=== PATIENT | female | born 1940 | race Caucasian/White ===

== ENCOUNTER → 2019-01-25 | Outpatient (CLI) | payer OTHER, BC ==
[~2019-01-25] MED LIST: AMARYL4 MG; ASPIR 8181 MG PO; AVAPRO300 MG PO; FLONASE 0.05%50 MCG NASAL; GABAPENTIN100 MG PO; HYDROCHLOROTHIA25 M2; HYDROCHLOROTHIA25 M2 PO; IRBESARTAN300 MG; JANUMET 50-1,01 EACH; LANTUSSOLASTAR; NITROGLYCERIN0.4 MG SUBLING; NORCO 5-325 TA1 EACH PO; OMEPRAZOLE 20 M20 M1 PO; PLAVIX 75 MG TA75 M1; SIMVASTATIN40 MG PO; TYLENOL325 MG PO
[2019-01-25 10:55] LABS: CREATININE 0.9 mg/dL (0.6-1.0)
== END ==
LOC: CAT 10:07
PROVIDERS: Pediatrics
DX: R59.9 Enlarged lymph nodes, unspecified (principal); J84.89 Other specified interstitial pulmonary diseases

== ENCOUNTER → 2020-01-17 | Outpatient (CLI) | payer OTHER, BC | LOC: SJCVCIMAG 11:21 | PROVIDERS: ATTEND Internal Medicine Cardiovascular Disease | DX: I45.10 Unspecified right bundle-branch block (principal); M79.605 Pain in left leg; M79.89 Other specified soft tissue disorders; I25.10 Atherosclerotic heart disease of native coronary artery without angina pectoris; E78.00 Pure hypercholesterolemia, unspecified; I10 Essential (primary) hypertension; E11.9 Type 2 diabetes mellitus without complications; Z90.49 Acquired absence of other specified parts of digestive tract; Z79.899 Other long term (current) drug therapy; Z87.891 Personal history of nicotine dependence ==

== ENCOUNTER → 2020-01-28 | Outpatient (CLI) | payer OTHER, BC | LOC: HYPER 12:26 | PROVIDERS: ATTEND Emergency Medicine | DX: E10.628 Type 1 diabetes mellitus with other skin complications (principal); L03.116 Cellulitis of left lower limb; E10.40 Type 1 diabetes mellitus with diabetic neuropathy, unspecified; I25.10 Atherosclerotic heart disease of native coronary artery without angina pectoris; D86.89 Sarcoidosis of other sites; G45.9 Transient cerebral ischemic attack, unspecified; R60.0 Localized edema; I10 Essential (primary) hypertension; E78.00 Pure hypercholesterolemia, unspecified; M19.90 Unspecified osteoarthritis, unspecified site; Z86.73 Personal history of transient ischemic attack (TIA), and cerebral infarction without residual deficits; Z87.891 Personal history of nicotine dependence; Z79.01 Long term (current) use of anticoagulants; Z81.2 Family history of tobacco abuse and dependence; Z90.49 Acquired absence of other specified parts of digestive tract; Z90.89 Acquired absence of other organs ==

== ENCOUNTER → 2020-02-01 | Outpatient (CLI) | payer OTHER, BC | LOC: SJCVCIMAG 13:30 | PROVIDERS: ATTEND Emergency Medicine | DX: I70.202 Unspecified atherosclerosis of native arteries of extremities, left leg (principal); M79.604 Pain in right leg ==

== ENCOUNTER → 2020-02-07 | Outpatient (CLI) | payer OTHER, BC | LOC: HYPER 13:32 | PROVIDERS: ATTEND Emergency Medicine | DX: L03.115 Cellulitis of right lower limb (principal); R60.0 Localized edema; E10.40 Type 1 diabetes mellitus with diabetic neuropathy, unspecified; E78.00 Pure hypercholesterolemia, unspecified; D86.89 Sarcoidosis of other sites; G45.9 Transient cerebral ischemic attack, unspecified; I25.10 Atherosclerotic heart disease of native coronary artery without angina pectoris; I10 Essential (primary) hypertension; M19.90 Unspecified osteoarthritis, unspecified site; Z81.2 Family history of tobacco abuse and dependence; Z79.4 Long term (current) use of insulin; Z79.84 Long term (current) use of oral hypoglycemic drugs; Z79.01 Long term (current) use of anticoagulants; Z87.891 Personal history of nicotine dependence; Z86.73 Personal history of transient ischemic attack (TIA), and cerebral infarction without residual deficits ==

== ENCOUNTER → 2020-02-12 | Outpatient (CLI) | payer OTHER, BC | LOC: SJCVC 13:43 | PROVIDERS: ATTEND Nuclear Medicine Nuclear Cardiology | DX: I73.9 Peripheral vascular disease, unspecified (principal); I25.118 Atherosclerotic heart disease of native coronary artery with other forms of angina pectoris; I10 Essential (primary) hypertension; E78.5 Hyperlipidemia, unspecified; E10.9 Type 1 diabetes mellitus without complications; Z90.49 Acquired absence of other specified parts of digestive tract; Z79.899 Other long term (current) drug therapy; Z87.891 Personal history of nicotine dependence ==

== ENCOUNTER → 2020-02-27 | Outpatient (CLI) | payer OTHER, BC ==
[~2020-02-27] VITALS: Ht 157.5 cm; Wt 71.2 kg
[~2020-02-27] MED LIST changes: -AMARYL4 MG; +AMARYL4 MG PO; +BASAGLAR K100 UNIT/1 SUBQ; +CALCIUM CIT 201 EACH PO; +COQ-10100 MG PO; +FAMOTIDINE 10 M10 MG PO; +KRILL OIL 1,001 EAC1 PO; +LOSARTAN POTAS100 MG PO; +NEURONTIN100 MG PO; +SUPER THERAVIT1 EACH PO; +VITAMIN B-121000 MC2 SUBLING; +VITAMIN D310 MC1 PO
[2020-02-27 08:21] LABS: HEMATOCRIT 40.3 % (37.0-47.0); HEMOGLOBIN 13.9 gm/dL (12.0-15.0); MCHC 34.4 g/dL (28.0-37.0); MCV 93.1 fL (80.0-100.0); RBC 4.33 mil/uL (4.20-5.00); WBC 9.6 thou/uL (4.0-11.0)
[2020-02-27 08:24] VITALS: BP 171/86
[2020-02-27 08:28] LABS: CALCIUM 10.5 mg/dL (8.5-10.1); CREATININE 0.7 mg/dL (0.6-1.0); POTASSIUM 3.9 mmol/L (3.5-5.1)
== END | disposition home or self-care (01) ==
LOC: CATH 07:39
PROVIDERS: ATTEND Nuclear Medicine Nuclear Cardiology
DX: I70.248 Atherosclerosis of native arteries of left leg with ulceration of other part of lower leg (principal); I70.1 Atherosclerosis of renal artery; L97.929 Non-pressure chronic ulcer of unspecified part of left lower leg with unspecified severity; I10 Essential (primary) hypertension; I25.10 Atherosclerotic heart disease of native coronary artery without angina pectoris; E11.9 Type 2 diabetes mellitus without complications; E78.5 Hyperlipidemia, unspecified; K21.9 Gastro-esophageal reflux disease without esophagitis; Z98.890 Other specified postprocedural states; Z79.899 Other long term (current) drug therapy; Z86.73 Personal history of transient ischemic attack (TIA), and cerebral infarction without residual deficits; Z79.4 Long term (current) use of insulin; Z87.891 Personal history of nicotine dependence; Z88.8 Allergy status to other drugs, medicaments and biological substances

== ENCOUNTER → 2020-02-28 | Outpatient (CLI) | payer OTHER, BC | LOC: HYPER 08:49 | PROVIDERS: ATTEND Emergency Medicine | DX: E10.628 Type 1 diabetes mellitus with other skin complications (principal); L03.115 Cellulitis of right lower limb; E10.40 Type 1 diabetes mellitus with diabetic neuropathy, unspecified; I25.10 Atherosclerotic heart disease of native coronary artery without angina pectoris; D86.89 Sarcoidosis of other sites; I10 Essential (primary) hypertension; G45.9 Transient cerebral ischemic attack, unspecified; E78.00 Pure hypercholesterolemia, unspecified; M19.90 Unspecified osteoarthritis, unspecified site; Z86.73 Personal history of transient ischemic attack (TIA), and cerebral infarction without residual deficits; Z87.891 Personal history of nicotine dependence; Z81.2 Family history of tobacco abuse and dependence; Z79.01 Long term (current) use of anticoagulants ==

== ENCOUNTER → 2020-07-18 | Outpatient (CLI) | payer OTHER, BC | LOC: SJCVC 13:33 | PROVIDERS: ATTEND Internal Medicine Cardiovascular Disease | DX: R94.31 Abnormal electrocardiogram [ECG] [EKG] (principal); I45.10 Unspecified right bundle-branch block; I25.118 Atherosclerotic heart disease of native coronary artery with other forms of angina pectoris; I10 Essential (primary) hypertension; E78.5 Hyperlipidemia, unspecified; I73.9 Peripheral vascular disease, unspecified; Z79.899 Other long term (current) drug therapy; Z87.891 Personal history of nicotine dependence ==

== ENCOUNTER → 2020-08-27 | Outpatient (CLI) | payer OTHER, BC | LOC: SJCVCIMAG 10:00 | PROVIDERS: ATTEND Nuclear Medicine Nuclear Cardiology | DX: I65.23 Occlusion and stenosis of bilateral carotid arteries (principal); I73.9 Peripheral vascular disease, unspecified; M79.605 Pain in left leg; I25.118 Atherosclerotic heart disease of native coronary artery with other forms of angina pectoris; I10 Essential (primary) hypertension; I35.0 Nonrheumatic aortic (valve) stenosis; E10.9 Type 1 diabetes mellitus without complications; E78.2 Mixed hyperlipidemia; S81.802A Unspecified open wound, left lower leg, initial encounter; E78.00 Pure hypercholesterolemia, unspecified; Z95.828 Presence of other vascular implants and grafts; Z79.4 Long term (current) use of insulin; Z79.899 Other long term (current) drug therapy; Z87.891 Personal history of nicotine dependence; X58.XXXA Exposure to other specified factors, initial encounter; Y93.89 Activity, other specified; Y92.89 Other specified places as the place of occurrence of the external cause; Y99.8 Other external cause status ==

== ENCOUNTER 2020-11-26 00:29 | Inpatient (IN) | payer OTHER, BC ==
[~2020-11-26] VITALS: Ht 157.5 cm; Wt 68.0 kg
[2020-11-26] VITALS (27 sets, daily range): BP systolic 109–181; BP diastolic 32–92
--- NOTE | ~2020-11-26 | P ---
[facility] [place] [address] PROCEDURE REPORT Name: MANDY ROMAN Room #: 212-P [facility] IN M.R.#: [id number] Admission: 11/26/20 Attend Phys: Pastor Hill MD Discharge: 11/28/20 Date of : 38 Report #: [id number] THIS REPORT FOR: cc: Elodia Myers MD, Melanie MD Couchonnal,Yovani Dennison MD ~ DOC #: [id number] Yovani Travis MD DATE OF SERVICE: 11/26/2020 PROCEDURE PERFORMED: Dual-chamber pacemaker implantation. PREOPERATIVE DIAGNOSIS: Complete heart block. POSTOPERATIVE DIAGNOSIS: Complete heart block. HISTORY: An 80-year-old presenting with symptomatic bradycardia secondary to heart block, here for pacemaker implantation. ANESTHESIA: The patient underwent MAC anesthesia with no anesthesia-related complications. DESCRIPTION OF PROCEDURE: The patient underwent informed consent. She was prepped and draped in a standard fashion receiving IV antibiotics and underwent a venogram showing pacing of left axillary vein. Next, I injected lidocaine at the incision site. Incision was made. Pocket created over prepectoral fascia. Access was obtained twice to left axillary vein. Sheath positioned using the modified Seldinger technique. Leads were positioned in the right ventricular apex, right atrial appendage, both with adequate pacing and sensing thresholds. Leads were sutured to prepectoral fascia. A device was connected, tested and found to be working well. Pocket irrigated with vancomycin. Pocket closed in two layers and surgical glue was placed to outer skin layer. The patient awoke neurologically and hemodynamically intact. No complications. No significant bleeding. The implanted pacemaker and leads were Medtronic. The generator had a model number W3DR01, serial number [id number]. Atrial lead was a 5076, serial number [id number]. Ventricular lead was a 5076, serial number [id number]. Atrial lead demonstrated P waves of 1 millivolt, pacing impedance 456 ohms, pacing threshold 0.75 volts at 0.4 milliseconds, RV lead demonstrated R waves of 7 millivolts, pacing impedance of 874 ohms, pacing threshold 0.5 volts at 0.4 milliseconds. The device was programmed to DDD 60-130 mode. CONCLUSION: Successful pacemaker implantation. Yovani Travis MD [facility] [address] [place] [address] PROCEDURE REPORT Name: MANDY ROMAN Room #: 212-P [facility].#: [id number] Admission: 11/26/20 Attend Phys: Pastor Hill MD Discharge: 11/28/20 Date of : 38 Report #: [id number] EBONIE/PRAFUL/KYMBERLY By: 1141 [id number] Yovani Travis MD /nt
--- NOTE | 2020-11-26 03:36 | NUR ---
PT TRANSFERRED DIRECT ADMISSION FROM [facility] TO ROOM 204 @ 0250. PT ADMISSION STARTED AND COMPLETED WITH PATIENT GIVEN A WELCOME PACKET WITH INFORMATION DIGITS. PT HAS SIGNED CONSENTS. MALU MEDICAL ARTIST (Chastity) AT BEDSIDE ASSESSING PATIENT. ASSESSEMNT CHARTED. CONTINUE TO MONITOR AND PLAN OF CARE
[2020-11-26] MEDS ORDERED: JANUMET 50-1,01 EACH PO (04:04)
[2020-11-26] MEDS ORDERED: OYSTER SHELL 51 EACH PO ×2 (04:09→05:14)
[2020-11-26] MEDS ORDERED: OCUVITE TABLET1 EAC1 PO (04:10)
[2020-11-26 04:45] LABS: HEMATOCRIT 41.1 % (37.0-47.0); HEMOGLOBIN 13.9 gm/dL (12.0-15.0); MCHC 33.9 g/dL (28.0-37.0); MCV 91.7 fL (80.0-100.0); RBC 4.49 mil/uL (4.20-5.00); RDW 13.3 % (10.5-14.5); WBC 11.6 thou/uL (4.0-11.0)
[2020-11-26 05:30] LABS: CALCIUM 10.3 mg/dL (8.5-10.1); CREATININE 0.9 mg/dL (0.6-1.0); POTASSIUM 4.5 mmol/L (3.5-5.1)
[2020-11-26 05:36] LABS: TOTAL BILIRUBIN 0.5 mg/dL (0.2-1.0)
[2020-11-26 06:18] LABS: CHOLESTEROL 152 mg/dL (<200); HDL CHOLESTEROL 70 mg/dL (>40); LDL CHOLESTEROL 61 mg/dL (<100); TC:HDL 2.2 Ratio (Not establshd); TRIGLYCERIDE 105 mg/dL (<150); VLDL 21 mg/dL (<40)
[2020-11-26 06:22] LABS: SERUM ASSESSMENT Clear
--- NOTE | 2020-11-26 09:23 | EKG ---
[address] [address] ELECTROCARDIOGRAM REPORT Name: MANDY ROMAN Room #: 204- ADM IN M.R.#: [id number] Admission: 11/26/20 Attend Phys: Pastor Hill MD Discharge: Date of : 36 Report #: [id number] [facility] Test Date: 2020-11-26 Test Time: 07:21:43 Pat Name: MANDY ROMAN Department: Room: 204 Gender: F Antique Repairer: SANDOVAL : 1940 Requested By: Rosa M Cerda Order Number: [id number] MD: Miguel Baltazar Measurements Intervals [place] Rate: 67 P: 64 ME: 193 QRS: 137 QRSD: 151 T: 23 QT: 442 QTc: 467 Interpretive Statements Sinus rhythm Right bundle branch block Compared to ECG 07/02/2016 09:49:29 Sinus arrhythmia no longer present Left posterior fascicular block no longer present Electronically Signed On 11-26-2020 9:23:29 CDT by Miguel Baltazar [email or web address] <ELECTRONICALLY SIGNED> By: Miguel Baltazar MD, [facility] 11/26/20922 0 0 Miguel Baltazar MD, [facility] /EPI
--- NOTE | 2020-11-26 10:38 | 2DMMODE ---
[facility] [place] [address] 2 D/M-MODE ECHOCARDIOGRAM Name: MANDY ROMAN Room #: 204-P ADM IN M.R.#: [id number] Admission: 11/26/20 Attend Phys: Pastor Hill MD Discharge: Date of : 38 Report #: [id number] THIS REPORT FOR: cc: Elodia Myres MD, Melanie MD Park, Jin S. MD ~ APPROVED REPORT Study performed: 11/26/2020 07:33:18 EXAM: Comprehensive 2D, Doppler, and color-flow Echocardiogram Patient Location: Bedside Room #: 204 Status: routine BSA: 1.75 HR: 62 bpm BP: 162/76 mmHg Rhythm: NSR Other Information Study Quality: Adequate Indications Murmur Elevated Troponin Hx: CAD, stent, HTN, HLP, DM. 2D Dimensions RVDd: 28.07 mm IVSd: 10.01 (7-11mm) LVOT Diam: 20.00 (18-24mm) LVDd: 53.06 mm PWd: 10.40 (7-11mm) Ascending Ao: 32.35 (22-36mm) LVDs: 23.92 (25-40mm) Aortic Root: 27.75 mm Volumes Left Atrial Volume (Systole) Single Plane 4CH: 71.07 mL Single Plane 2CH: 48.16 mL LA ESV Index: 35.00 mL/m2 Aortic Valve AoV Peak Alejandro.: 3.08 m/s AO Peak Gr.: 33.37 mmHg AO Mean Gr.: 23.93 mmHg [facility] [address] [place] [address] 2 D/M-MODE ECHOCARDIOGRAM Name: MANDY ROMAN Room #: 204-P [facility] IN .R.#: [id number] Admission: 11/26/20 Attend Phys: Ada Tracy Discharge: Date of : 38 Report #: [id number] AO V2 Mean: 2.33 m/s AO V2 VTI: 80.21 cm Mitral Valve E/A Ratio: 0.8 MV Decel. Time: 217.62 ms MV E Max Alejandro.: 0.96 m/s MV A Alejandro.: 1.26 m/s MV PHT: 63.11 ms IVRT: 86.51 ms Pulmonary Valve PV Peak Alejandro.: 1.24 m/s PV Peak Gr.: 6.18 mmHg Pulmonary Vein P Vein S: 0.54 m/s P Vein A: 0.39 m/s P Vein D: 0.40 m/s P Vein A Dur.: 143.0 msec P Vein S/D Ratio: 1.35 Tricuspid Valve RAP Estimate: 5.00 mmHg Left Ventricle The left ventricle is normal size. There is normal LV segmental wall motion. There is normal left ventricular wall thickness. The left ventricular systolic function is normal. LVEF is 60-65%. Mild diastolic dysfunction is present (impaired relaxation pattern). Right Ventricle The right ventricle is normal size. The right ventricular systolic function is normal. Atria Left atrium is dilated. The right atrium size is normal. Aortic Valve The aortic valve is normal in structure. Leaflets are moderately calcified. No aortic regurgitation is present. There is moderate valvular aortic stenosis. Maximum pressure gradient of 38 mmHg and mean pressure gradient of 24 mmHg. Mitral Valve The mitral valve is normal in structure. Mild mitral regurgitation. No evidence of mitral valve stenosis. [facility] [place] [address] 2 D/M-MODE ECHOCARDIOGRAM Name: MANDY ROMAN Room #: 204-P [facility] IN ..#: [id number] Admission: 11/26/20 Attend Phys: Ada Tracy Discharge: Date of : 38 Report #: [id number] Tricuspid Valve The tricuspid valve is normal in structure. Trace tricuspid regurgitation. Unable to assess PA pressure. Pulmonic Valve The pulmonary valve is normal in structure. There is no pulmonic valvular regurgitation. Great Vessels The aortic root is normal in size. The ascending aorta is normal in size. IVC is normal in size and collapses <50% with inspiration. Pericardium There is no pericardial effusion. <Conclusion> The left ventricle is normal size. There is normal left ventricular wall thickness. The left ventricular systolic function is normal. Mild diastolic dysfunction is present (impaired relaxation pattern). The right ventricle is normal size. Left atrium is dilated. There is moderate valvular aortic stenosis. Mild mitral regurgitation. <ELECTRONICALLY SIGNED> By: Rolando Romero MD 11/26/20 1037 1037 1037 Rolando Romero MD /INF
--- NOTE | 2020-11-26 13:26 | NUR ---
Met with patient who transferred to [facility] from [facility]. Patient resides at home with son-in-law and grandson. Patient walks from garage straight into her apt of the home. Her grandson/son in law live upstairs. 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 Their hours are different therefor someone home at all times. Patient reports she has a walker/wc but does not use. She reports independent with adls port captain. She cont to drive. Patient anticipates no needs at wi.
--- NOTE | 2020-11-26 15:16 | EKG ---
[address] [place] [address] ELECTROCARDIOGRAM REPORT Name: MANDY ROMAN Room #: 204- ADM IN M.R.#: [id number] Admission: 11/26/20 Attend Phys: Pastor Hill MD Discharge: Date of : 38 Report #: [id number] [facility] Test Date: 2020-11-26 Test Time: 14:39:48 Pat Name: MANDY ROMAN Department: Room: 204 Gender: F Flat Drier: SANDOVAL : 1940 Requested By: Annmarie Perez Order Number: [id number] MD: Brian Tiwari Measurements Intervals [place] Rate: 42 P: 0 [place]: 342 QRS: 119 QRSD: 146 T: -44 QT: 558 QTc: 467 Interpretive Statements Sinus rhythm with complete heart block RBBB and LPFB Abnormal T, consider ischemia Compared to ECG 11/26/2020 07:21:43 Heart block is now present Electronically Signed On 11-26-2020 15:16:34 CDT by Brian Tiwari [email or web address] <ELECTRONICALLY SIGNED> By: Brian Tiwari MD, [facility] 11/26/20 1516 1439 1439 Brian Tiwari MD, [facility] /EPI
--- NOTE | 2020-11-26 17:31 | NUR ---
ARRIVED TO ICU FROM CCU THIS AFTERNOON, ALERT AND ORIENTED AND DENIES PAIN. HYPERTENSIVE AND BRADYCARDIC, STARTED ON DOPAMINE GTT AND NOW PATIENT IS SR AND BP HAS SINCE DECREASED AND STABILIZED. NO CONCERNS EXPRESSED AT THIS TIME. ASSESSMENT DOCUMENTED.
--- NOTE | 2020-11-26 18:48 | NUR ---
ASSUMED PATIENT CARE AT 0700. EKG AND ECHO PREFORMED. AROUNT 1400 PATIENT CONVERTED TO MOBITZ II HEART BLOCK. PATIENT LETHARGIC AND COMPLAINING OF WEAKNESS. CARDIOLOGY CONSUMER EXPERIENCE CONSULTANT NOTIFIED AND ORDER FOR EKG OBTAINED. AT 1500 ORDERED RECIEVED TO TRANSFER TO ICU. REPORT CALLED TO CONVEYOR OPERATOR. DR. ROBLERO AT BEDSIDE. KUSUM WALTERS UPDATED VIA PHONE CALL AT 1863. HE WAS UPDATED ON PATIENT CONDITION WELL TRANSFER TO ICU. SON ALSO UPDATED ON PLAN FOR CATH AND PACEMAKER TOMORROW.
[2020-11-26 23:06] LABS: GLYCOHEMOGLOBIN (HGB A1C) 8.4 % (4.8-5.6)
[2020-11-27] VITALS (21 sets, daily range): BP systolic 103–173; BP diastolic 32–60
[2020-11-27 05:15] LABS: HEMATOCRIT 37.4 % (37.0-47.0); HEMOGLOBIN 12.8 gm/dL (12.0-15.0); MCH 31.6 pg (26.0-34.0); MCHC 34.1 g/dL (28.0-37.0); MCV 92.5 fL (80.0-100.0); RBC 4.04 mil/uL (4.20-5.00); RDW 13.3 % (10.5-14.5); WBC 13.4 thou/uL (4.0-11.0)
[2020-11-27 05:54] LABS: ANION GAP 10 mmol/L (7-16); BUN 12 mg/dL (7-18); CALCIUM 9.5 mg/dL (8.5-10.1); CHLORIDE 102 mmol/L (98-107); CO2 23 mmol/L (21-32); CREATININE 0.9 mg/dL (0.6-1.0); GLUCOSE 221 mg/dL (74-106); POTASSIUM 4.5 mmol/L (3.5-5.1); SODIUM 135 mmol/L (136-145); TROPONIN-I <0.06 ng/mL (<0.06)
--- NOTE | 2020-11-27 10:45 | HC ---
[facility] [place] [address] CONSULTATION Name: MANDY ROMAN Room #: 242-P ADM IN M.R.#: [id number] Admission: 11/26/20 Attend Phys: Pastor Hill MD Discharge: Date of : 38 Report #: [id number] THIS REPORT FOR: cc: Elodia Myers MD, Melanie MD Couchonnal,Yovani Dennison MD ~ ELECTROPHYSIOLOGY CONSULTATION REASON FOR CONSULTATION: Complete heart block. HISTORY OF PRESENT ILLNESS: The patient is an 79-year-old female who follows with Dr. Romero, history of coronary artery disease, status post bare metal stent to the circumflex 2014, hypertension, hyperlipidemia, diabetes, peripheral neuropathy, prior TIA, vertigo, arthritis, peripheral vascular disease, gastritis with prior GI bleed, who has been having increased lightheaded and presyncopal symptoms associated with fatigue and shortness of breath. She was transferred here to [facility] where on telemetry she was noted to have symptomatic complete heart block. She was transferred to the Intensive Care Unit, was started on a dopamine drip, which improved her conduction overnight. She is scheduled today for cardiac catheterization given an elevated troponin of 0.1. She denies any chest pain or chest tightness. She denies any shortness of breath. Currently, she denies fevers or chills. REVIEW OF SYSTEMS: A 12-point review of systems was performed and was negative other than what I mentioned above. PAST MEDICAL HISTORY: As above. SOCIAL HISTORY: No smoking. FAMILY HISTORY: Noncontributory. ALLERGIES: Reviewed include AMLODIPINE, ASPIRIN AND CHOCOLATE. MEDICATIONS: Have been reviewed. She is on no AV jarad blocking agents. PHYSICAL EXAMINATION: VITAL SIGNS: Reviewed. GENERAL: She is alert and oriented x 3, in no acute distress. HEENT: Oropharynx is clear. Mucous membranes are moist and sclerae are anicteric. NECK: Supple. No thyromegaly or carotid bruits. HEART: Regular rate and rhythm with no murmurs, rubs or gallops. LUNGS: Clear to auscultation bilaterally. ABDOMEN: Soft, nontender, nondistended. EXTREMITIES: No clubbing, cyanosis, edema. [facility] [address] [place] [address] CONSULTATION Name: MANDY ROMAN Room #: 242-P [facility] IN [facility].#: [id number] Admission: 11/26/20 Attend Phys: Pastor Hill MD Discharge: Date of : 38 Report #: [id number] NEUROLOGIC: Cranial nerves 2-12 are intact. PSYCHIATRIC: She is appropriate. DIAGNOSTIC DATA: She had an echocardiogram yesterday showing normal ejection fraction with moderate aortic stenosis. LABORATORY DATA: Reviewed. Creatinine 0.9. COVID negative. White count 13, hemoglobin 12, platelets 301. ASSESSMENT: 1. Symptomatic bradycardia. 2. Complete heart block. 3. Coronary artery disease. 4. Elevated troponin. PLAN: In summary, the patient is an 79-year-old presenting with symptomatic bradycardia secondary to complete heart block. She is on no AV jarad blocking agents. She meets criteria for dual chamber pacemaker implantation. We discussed the details of the procedure including the risks, which include but not limited to bleeding, infection, vascular damage, cardiac perforation, pneumothorax. She understands these risks and is willing to proceed. After diagnostic cardiac catheterization, we will proceed with pacemaker implantation. <ELECTRONICALLY SIGNED> By: Yovani Travis MD 11/27/20 1045 0747 0756 Yovani Travis MD /nt
--- NOTE | 2020-11-27 11:19 | CATHLAB ---
[facility] [place] [address] INVASIVE PROCEDURE REPORT Name: MADNY ROMAN Room #: 242-P ADM IN M.R.#: [id number] Admission: 11/26/20 Attend Phys: Pastor Hill MD Discharge: Date of : 38 Report #: [id number] THIS REPORT FOR: cc: Elodia Myers MD, Melanie MD Park, Jin S. MD ~ APPROVED REPORT Study performed: 11/27/2020 08:12:22 Patient Details Patient Status: In-Patient Room #: 242 The patient is a 79 year-old female Event Personnel Rolando Romero Multi Operation Forming Machine Setter, Skip Munoz RTR Scrub, Josh Stoddard RN RN, Ellie Cantu RTR Monitor Procedures Performed Art Access - R femoral artery* Left Heart Cath w/or w/o Coronaries 0761691 [facility] Hemostasis with Manual pressure 64000 Initial Mod Sed Same Phys/QHP Gr5y 751073 40175 Mod Sed Same Phys/QHP Ea 034348 Indication Dizziness and vertigo, Dyspnea, Chest pain, The patient presented with minimal troponin elevation. Risk Factors Hypercholesterolemia, Coronary Artery DiseaseHypertension Previous Procedures/Diagnoses Previous PCI Procedure Narrative The Right Groin^ was infiltrated with 1% Lidocaine subcutaneous anesthesia. A PINNACLE 4FR Sheath #[id number] sheath was inserted into the RFA^. Coronary angiography was performed using coronary diagnostic catheters. The right coronary system was accessed and visualized with a JR4 catheter. The left coronary system was accessed and visualized with a JL4 catheter. The left ventricle was accessed and visualized with a ANGLED PIGTAIL catheter. Hemostasis was obtained with manual pressure following sheath removal without any complications. The patient tolerated the procedure well and there [facility] [address] [place] [address] INVASIVE PROCEDURE REPORT Name: MANDY ROMAN Rissa Room #: 242-P [facility] IN [facility].#: [id number] Admission: 11/26/20 Attend Phys: Ada Tracy Discharge: Date of : 38 Report #: [id number] were no complications associated with the procedure. There was no hematoma. Intraoperative Conscious Sedation Sedation start time: 9:05 Case end Time: 9:33 Fentanyl 50 mcg Versed 1 mg Fluoro Time: 2.50 minutes Dose: DAP 4385.00 cGycm2 541 mGy Contrast Type and Amount: Omnipaque 80 ml Coronary Angiography The patient's coronary anatomy is right dominant. Diagnostic Cath Left Main The left main artery is a large-caliber vessel, appears angiographically normal. LAD The LAD is a moderate-sized caliber vessel, traverses the anterior wall and wraps around the apex. There is mild disease in the proximal segment, 20%. Diagonal 1 This vessel originates from the mid segment of the LAD, appears angiographically normal. Circumflex There is a patent stent in the proximal segment, with mild to moderate restenosis. OM1 This is a moderate-sized caliber vessel, patent with no flow-limiting lesions. OM2 This is a moderate-sized caliber vessel, patent with no flow-limiting lesions. Right Coronary The RCA is a dominant vessel with mild to moderate stenosis in the proximal segment, 30 to 40%. R PDA This is a moderate-sized caliber vessel, patent with no flow-limiting lesions. RPLV This is a moderate-sized caliber vessel, patent with no flow-limiting lesions. Ramus This is a moderate-sized caliber vessel, patent with no flow-limiting lesions. Left Ventriculography The left ventricle is normal in size with normal contractility. The left ventricular ejection fraction is estimated to be 55-60%. Hemodynamics The aortic pressure is 132/55 mmHg with a mean of 83 mmHg. The left ventricular pressure is 177/3 mmHg with a mean of mmHg. [facility] [address] [place] [address] INVASIVE PROCEDURE REPORT Name: MANDY ROMAN Room #: 242-P [facility] IN [facility].#: [id number] Admission: 11/26/20 Attend Phys: Ada Tracy Discharge: Date of : 38 Report #: [id number] ventricular end diastolic pressure is 16 mmHg. Conclusion 1. There is a patent stent in the left circumflex artery with mild to moderate restenosis. 2. There is mild to moderate disease in the LAD and RCA. 3. There is normal LV systolic function. 4. Recommend aggressive risk factor management. <ELECTRONICALLY SIGNED> By: Rolando Romero MD 11/27/20 1118 1118 1118 Rolando Romero MD /INF
--- NOTE | 2020-11-27 14:46 | NUR ---
PT TAKEN TO RETAIL RECEIVING CLERK TODAY AT 0700, UNABLE TO DO MORNING ASSESTMENT OR MED PASS. PT RETURNED TO ICU AT APPROX 1400 WITH AN AICD TO LEFT CHEST WITH SUTURES IN PLACE FOR SKIN CLOSURE. RIGHT GROIN SITE IS C/D/I, PT REPORTS NO PAIN. PT HAS BEEN UPDATED AND EDUCATED ON CONDITION, POC, AND SPECIFIC INSTRUCTIONS FOR GROIN AND CHEST SITE. PT PROGRESSING TOWARDS POC.
--- NOTE | 2020-11-27 17:35 | NUR ---
PT. ARRIVED AT FLOOR CLOSE TO 1500; PT. AOX4; NO C/O PAIN; VPACED-AVPACED; SBP ON THE 170s; SCHEDULED MEDICATION GIVEN BEFORE ARRIVING TO FLOOR; PRN MEDICATION GIVEN; RAVI SENIOR RADIATION THERAPIST NOTIFIED; ORDERS ON PLACED; INCISION OVER L. UPPER CHEST; IMMOBILIZER ON PLACED; PT. EDUCATED ABOUT BED REST; ST. UNDERSTANDING; EDUCATED ABOUT CALLING TO USE THE BED SIDE COMMODE; ST. UNDERSTANDING; ASSESSMENT CHARGED; FOLLOWING POC; WILL PASS ON REPORT;
[2020-11-28 00:05] VITALS: BP 129/40
[2020-11-28 05:05] LABS: HEMATOCRIT 34.5 % (37.0-47.0); HEMOGLOBIN 11.7 gm/dL (12.0-15.0); MCH 31.7 pg (26.0-34.0); MCV 93.2 fL (80.0-100.0); RBC 3.7 mil/uL (4.20-5.00); RDW 13.3 % (10.5-14.5); WBC 10.6 thou/uL (4.0-11.0)
--- NOTE | 2020-11-28 05:07 | NUR ---
ASSUMED PT CARE AT CHANGE OF SHIFT, AWAKE, ALERT AND ORIENTED, ASSESSMENTS CHARTED, MEDS GIVEN PER MAR, TYL GIVEN FOR PAIN WITH RELIEF, PACE MAKER INCISION SITE TO THE LEFT CHEST CDI, HAND IMMOBILIZER ON, UP TO THE COMMODEX1 ASSIST, VSS, AV PACED ON TELE, RIGHT GROIN SITE CDI, NO HEMATOMA, DENIES CONCERNS, WILL CONTINUE TO MONITOR AND FOLLOW POC
[2020-11-28 05:08] LABS: CALCIUM 9.6 mg/dL (8.5-10.1); CREATININE 0.9 mg/dL (0.6-1.0); POTASSIUM 4.1 mmol/L (3.5-5.1)
[2020-11-28 05:18] VITALS: BP 144/45
[2020-11-28 07:34] VITALS: BP 156/62
[2020-11-28 11:22] VITALS: BP 148/60
--- NOTE | 2020-11-28 11:43 | NUR ---
Pt dcing home today. HH recommended per the attending and discussed options with the pt. The pt does not feel she need nursing visits at home or therapy. She has lots of family support and her sister will be staying with her as well. They can provide support and supervision for adl's and homemaker activities. She has grandkids and sons that live there and are available as needed. Care team updated. No hh referrals anticipated at this time. Pt to f/u with her pcp at [facility] as well as cardiology.
[2020-11-28] MEDS ORDERED: PEPCID20 MG PO (12:12)
[2020-11-28] MEDS ORDERED: BENICAR40 MG PO (12:12)
[2020-11-28] MEDS ORDERED: CEPHALEXIN500 MG PO (12:12)
--- NOTE | 2020-11-28 12:26 | NUR ---
RECEIVED PT'S CARE AROUND 0945; PT. AOX4; GETTING READY TO GO TO XRAY; SR ON THE MONITOR; DURING AM ASSESSMENT NO C/O PAIN; REQUESTED TO USE THE RESTHROOM; NOTICED PT. HOLDING FROM FURNITURES WHILE AMBULATING WITH FIELD ENUMERATOR ASSISTANCE; ASKED IF USE CANE OR WALKER; PT. ST. WILL START USING A WALKER ONCE AT HOME DUE TO PACEMAKER PLACEMENT; REMAINED ABOUT PACEMAKER PRECAUTIONS AND FALLS; ST. UNDERSTANDING; PER SOCIAL WOKER PT. REFUSED HH; RAVI MARSH NOTIFIED ABOUT XRAY RESULTS IN THE SYSTEM; SUGGESTED TO NOTIFIED DR. ALAMO ABOUT RESULTS; DR. ALAMO NOTIFIED; ST. WILL RX ABX FOR 5 DAYS; WAITING ON D/C COMPLETION BY DR. ALAMO; ASSESSMENT CHARGED; FOLLOWING POC; WILL WORK ON D/C PAPER ONCE COMPLETE IT;
[2020-11-28 12:48] VITALS: BP 148/60
== END 2020-11-28 13:33 | disposition home or self-care (01) | DRG 243 ==
LOC: 2N 00:29 → ICU 02:53 → 2N 11-27 14:25
PROVIDERS: Internal Medicine Cardiovascular Disease; Nurse Practitioner; Nurse Practitioner Family; ADMIT Hospitalist; ATTEND Hospitalist
DX: I44.2 Atrioventricular block, complete (principal); E87.1 Hypo-osmolality and hyponatremia; T82.855A Stenosis of coronary artery stent, initial encounter; I25.10 Atherosclerotic heart disease of native coronary artery without angina pectoris; I10 Essential (primary) hypertension; E11.51 Type 2 diabetes mellitus with diabetic peripheral angiopathy without gangrene; I95.1 Orthostatic hypotension; I16.0 Hypertensive urgency; E11.42 Type 2 diabetes mellitus with diabetic polyneuropathy; E78.5 Hyperlipidemia, unspecified; Z20.822 Contact with and (suspected) exposure to COVID-19; Y83.8 Other surgical procedures as the cause of abnormal reaction of the patient, or of later complication, without mention of misadventure at the time of the procedure; Y92.89 Other specified places as the place of occurrence of the external cause; Z88.6 Allergy status to analgesic agent; Z88.8 Allergy status to other drugs, medicaments and biological substances; Z95.5 Presence of coronary angioplasty implant and graft; Z86.73 Personal history of transient ischemic attack (TIA), and cerebral infarction without residual deficits; Z94.89 Other transplanted organ and tissue status; Z95.820 Peripheral vascular angioplasty status with implants and grafts; Z82.49 Family history of ischemic heart disease and other diseases of the circulatory system; Z87.891 Personal history of nicotine dependence
CPT/HCPCS: 10078; 10081; 10204; 62110; 62900; 70005

== ENCOUNTER → 2020-12-03 | Outpatient (CLI) | payer OTHER, BC ==
[~2020-12-03] MED LIST changes: +BENICAR40 MG PO; +CEPHALEXIN500 MG PO; +JANUMET 50-1,01 EACH PO; +OCUVITE TABLET1 EAC1 PO; +OYSTER SHELL 51 EACH PO; +PEPCID20 MG PO
== END ==
LOC: SJCVC 13:29
PROVIDERS: ATTEND Internal Medicine Cardiovascular Disease
DX: I44.2 Atrioventricular block, complete (principal); I10 Essential (primary) hypertension; I25.10 Atherosclerotic heart disease of native coronary artery without angina pectoris; E78.5 Hyperlipidemia, unspecified; E11.51 Type 2 diabetes mellitus with diabetic peripheral angiopathy without gangrene; I73.9 Peripheral vascular disease, unspecified; Z95.0 Presence of cardiac pacemaker; Z90.49 Acquired absence of other specified parts of digestive tract; Z98.890 Other specified postprocedural states; Z88.8 Allergy status to other drugs, medicaments and biological substances; Z79.4 Long term (current) use of insulin; Z79.899 Other long term (current) drug therapy; Z87.891 Personal history of nicotine dependence; Z86.73 Personal history of transient ischemic attack (TIA), and cerebral infarction without residual deficits; Z82.49 Family history of ischemic heart disease and other diseases of the circulatory system

== ENCOUNTER → 2020-12-18 | Outpatient (CLI) | payer OTHER, BC | LOC: SJCVC 11:12 | PROVIDERS: ATTEND Internal Medicine Cardiovascular Disease | DX: R94.31 Abnormal electrocardiogram [ECG] [EKG] (principal); I45.10 Unspecified right bundle-branch block; I49.1 Atrial premature depolarization; I25.118 Atherosclerotic heart disease of native coronary artery with other forms of angina pectoris; I10 Essential (primary) hypertension; E78.00 Pure hypercholesterolemia, unspecified; R60.9 Edema, unspecified; I44.2 Atrioventricular block, complete; E11.9 Type 2 diabetes mellitus without complications; E78.5 Hyperlipidemia, unspecified; Z95.0 Presence of cardiac pacemaker; Z90.49 Acquired absence of other specified parts of digestive tract; Z98.890 Other specified postprocedural states; Z98.61 Coronary angioplasty status; Z88.8 Allergy status to other drugs, medicaments and biological substances; Z79.4 Long term (current) use of insulin; Z79.899 Other long term (current) drug therapy; Z86.73 Personal history of transient ischemic attack (TIA), and cerebral infarction without residual deficits; Z87.891 Personal history of nicotine dependence; Z82.49 Family history of ischemic heart disease and other diseases of the circulatory system ==

== ENCOUNTER → 2021-02-24 | Outpatient (CLI) | payer OTHER, BC | LOC: SJCVCIMAG 08:45 | PROVIDERS: ATTEND Internal Medicine Cardiovascular Disease | DX: R94.31 Abnormal electrocardiogram [ECG] [EKG] (principal); I49.9 Cardiac arrhythmia, unspecified; I45.10 Unspecified right bundle-branch block; I73.9 Peripheral vascular disease, unspecified; M79.604 Pain in right leg; M79.605 Pain in left leg; E78.00 Pure hypercholesterolemia, unspecified; I77.9 Disorder of arteries and arterioles, unspecified; I10 Essential (primary) hypertension; I35.0 Nonrheumatic aortic (valve) stenosis; E10.9 Type 1 diabetes mellitus without complications; I25.118 Atherosclerotic heart disease of native coronary artery with other forms of angina pectoris; I49.5 Sick sinus syndrome; Z95.0 Presence of cardiac pacemaker; Z90.49 Acquired absence of other specified parts of digestive tract; Z98.890 Other specified postprocedural states; Z95.820 Peripheral vascular angioplasty status with implants and grafts; Z88.8 Allergy status to other drugs, medicaments and biological substances; Z79.899 Other long term (current) drug therapy; Z86.73 Personal history of transient ischemic attack (TIA), and cerebral infarction without residual deficits; Z87.891 Personal history of nicotine dependence; Z82.49 Family history of ischemic heart disease and other diseases of the circulatory system ==

== ENCOUNTER → 2021-03-26 | Outpatient (CLI) | payer OTHER, BC | LOC: SJCVC 11:01 | PROVIDERS: ATTEND Internal Medicine Cardiovascular Disease | DX: R94.31 Abnormal electrocardiogram [ECG] [EKG] (principal); I45.10 Unspecified right bundle-branch block; I25.10 Atherosclerotic heart disease of native coronary artery without angina pectoris; I10 Essential (primary) hypertension; E78.00 Pure hypercholesterolemia, unspecified; R60.9 Edema, unspecified; E11.9 Type 2 diabetes mellitus without complications; M19.90 Unspecified osteoarthritis, unspecified site; Z95.0 Presence of cardiac pacemaker; Z95.5 Presence of coronary angioplasty implant and graft; Z98.890 Other specified postprocedural states; Z90.49 Acquired absence of other specified parts of digestive tract; Z88.8 Allergy status to other drugs, medicaments and biological substances; Z79.899 Other long term (current) drug therapy; Z86.73 Personal history of transient ischemic attack (TIA), and cerebral infarction without residual deficits; Z87.891 Personal history of nicotine dependence; Z82.49 Family history of ischemic heart disease and other diseases of the circulatory system ==

== ENCOUNTER → 2021-07-17 | Outpatient (CLI) | payer OTHER, BC | LOC: RAD 08:10 | PROVIDERS: ATTEND Pediatrics | DX: R91.8 Other nonspecific abnormal finding of lung field (principal); J84.89 Other specified interstitial pulmonary diseases; R06.02 Shortness of breath; M25.78 Osteophyte, vertebrae; M47.814 Spondylosis without myelopathy or radiculopathy, thoracic region ==

== ENCOUNTER → 2021-09-09 | Outpatient (CLI) | payer OTHER, BC | LOC: SJCVCIMAG 12:10 | PROVIDERS: ATTEND Nuclear Medicine Nuclear Cardiology | DX: I73.9 Peripheral vascular disease, unspecified (principal); I25.118 Atherosclerotic heart disease of native coronary artery with other forms of angina pectoris; I35.0 Nonrheumatic aortic (valve) stenosis; I10 Essential (primary) hypertension; E10.9 Type 1 diabetes mellitus without complications; E78.00 Pure hypercholesterolemia, unspecified; I77.9 Disorder of arteries and arterioles, unspecified; Z90.49 Acquired absence of other specified parts of digestive tract; Z90.710 Acquired absence of both cervix and uterus; Z98.890 Other specified postprocedural states; Z87.891 Personal history of nicotine dependence; Z79.899 Other long term (current) drug therapy; Z88.1 Allergy status to other antibiotic agents; Z88.8 Allergy status to other drugs, medicaments and biological substances ==

== ENCOUNTER → 2021-09-09 | Outpatient (CLI) | payer OTHER, BC | LOC: CAT 07-17 10:39 | PROVIDERS: ATTEND Pediatrics | DX: R06.02 Shortness of breath (principal); J84.10 Pulmonary fibrosis, unspecified ==

== ENCOUNTER → 2021-09-29 | Outpatient (CLI) | payer OTHER, BC | LOC: SJCVCIMAG 10:04 | PROVIDERS: ATTEND Internal Medicine Cardiovascular Disease | DX: I25.10 Atherosclerotic heart disease of native coronary artery without angina pectoris (principal); I10 Essential (primary) hypertension; E78.5 Hyperlipidemia, unspecified; E78.00 Pure hypercholesterolemia, unspecified; R60.9 Edema, unspecified; I63.9 Cerebral infarction, unspecified; E11.9 Type 2 diabetes mellitus without complications; D86.9 Sarcoidosis, unspecified; Z90.49 Acquired absence of other specified parts of digestive tract; Z98.890 Other specified postprocedural states; Z90.710 Acquired absence of both cervix and uterus; Z79.899 Other long term (current) drug therapy; Z88.8 Allergy status to other drugs, medicaments and biological substances; Z87.891 Personal history of nicotine dependence ==